=== PATIENT | female | born 1955 | race Caucasian/White ===

== ENCOUNTER 2018-05-18 05:31 | Day surgery (SDC) | payer OTHER ==
[~2018-05-18] VITALS: Ht 162.6 cm; Wt 65.8 kg
--- NOTE | ~2018-05-18 | O ---
[facility] [place] [address] OPERATIVE REPORT Name: JIMBO LIMON Room #: 150-12 [facility].#: [id number] Admission: 05/18/18 Attend Phys: Job Lyon MD Discharge: Date of : 51 Report #: [id number] THIS REPORT FOR: //name// CC: Dr. Kirsty Garcia Dr. THIERRY GARCIA Physician staff Job Lyon DATE OF SERVICE: 05/18/2018 PREOPERATIVE DIAGNOSIS: Recurrent left nasolacrimal duct obstruction. POSTOPERATIVE DIAGNOSIS: Recurrent left nasolacrimal duct obstruction. PROCEDURE: Left endoscopic dacryocystorhinostomy with silicone intubation. SURGEON: Job Lyon MD. PLANT HEALTH MANAGER: None. ANESTHESIA: General. COMPLICATIONS: None. INDICATIONS FOR SURGERY: This pleasant 62-year-old woman has previously undergone an incisional dacryocystorhinostomy. Unfortunately, postoperatively, her ostium in the nose appears to have healed to such a degree that it does not allow her good lacrimal drainage. She presents today for a revision of her prior DCR in order to attempt to establish patent lacrimal outflow and improve her quality of vision. Informed consent was obtained to include but not limited to potential risk for loss of vision, bleeding, infection, failure to improve the problem, the potential need for further surgery or treatment. DESCRIPTION OF PROCEDURE: The patient was taken to the operating room where general anesthesia was administered. The left medial canthal area and left lateral wall of the nose was then infiltrated with Xylocaine with epinephrine mixed with Marcaine and Wydase. The left side of the nose was then packed with Afrin-soaked cottonoids. The patient was subsequently prepped and draped in the usual sterile fashion. The left superior and inferior puncta were then dilated with a punctum dilator. A size 3 stainless steel Woo probe was then passed through the superior canalicular system through the areas of lacrimal sac. The cottonoids were removed from the nose and the video endoscope brought into the field. [facility] [address] [place] [address] OPERATIVE REPORT Name: LIMONJIMBO R Room #: 150-12 [facility] M..#: [id number] Admission: 05/18/18 Attend Phys: Job Lyon MD Discharge: Date of : 51 Report #: [id number] Inspection of the lateral wall of the nose in the area of the root of the middle turbinate showed a small, but patent opening from her prior DCR. The Woo probe was then passed through this ostium with direct visualization as provided by the endoscope. It was then withdrawn and the Woo probe passed through the system at a lower point to allow an enlargement of the ostium. Multiple punctures were made to ensure that the ostium was enlarged as possible through that previous bony osteotomy. The Woo probe was removed and a 5 x 8 mm LacriCatheter was lubricated with erythromycin ointment and then passed through that ostium. It was inflated to 9 atmospheres for 90 seconds at 3 different inflation points ensuring that the entire ostium was dilated. The balloon was then vigorously aspirated as it was withdrawn. The tract was then irrigated with BSS, which showed good flow into the nose. Rabago tubes were then passed through the superior and inferior canaliculi and retrieved in the nose with a Rabago hook. They were then secured to themselves with 3 square throws and subsequently to the lateral wall of the nose with one 5-0 Prolene suture. Maxitrol drops were placed on the eye and the patient subsequently transported to the recovery area having tolerated the procedure well with no anesthetic or operative complications being noted. By: [id number] Job Lyon MD /nt
[~2018-05-18 05:31] MED LIST: ALPHAGAN P5 ML OPHTHALMIC; CALCIUM + D3 E1 EACH PO; GLUCOSAMINE &1 EACH PO; MAGNESIUM400 MG PO; MULTIVITAMINS1 EAC7 PO; SUPER B COMPLE1 EAC2 PO; TIMOPTIC5 ML OPHTHALMIC; TURMERIC COMPL1 EACH PO; XALATAN2.5 ML OPHTHALMIC
[2018-05-18 07:15] VITALS: BP 115/73
== END 2018-05-18 08:59 | disposition home or self-care (01) ==
LOC: OR 05:31 → TBA 05:31 → OR 06:52
DX: H04.552 Acquired stenosis of left nasolacrimal duct (principal); H40.9 Unspecified glaucoma; Z98.890 Other specified postprocedural states; Z79.899 Other long term (current) drug therapy
CPT/HCPCS: 50010; 50101; 50386; 50398; 51777; 55343; 56528; 62110; 62900; 64037; 70005